=== PATIENT | female | born 1975 | race Caucasian/White ===

== ENCOUNTER 2018-11-04 21:22 | Emergency (ER) | payer SELFPAY ==
--- NOTE | 2018-11-04 23:25 | RADIOLOGY REPORT (SQ) ---
EXAM DESCRIPTION: XR CHEST 1 VIEW COMPLETED DATE/TME: 11/04/2018 22:53 CLINICAL HISTORY: 43 years Female, cp COMPARISON: None. NUMBER OF VIEWS/TECHNIQUE: 1/AP FINDINGS: Adequate lung volume, clear parenchyma, normal cardiac silhouette, and intact bony thorax. IMPRESSION: No acute cardiopulmonary findings.
[2018-11-04] MEDS ORDERED: ASPIRIN 81 MG TABLET, CHEWABLE PO ONE (23:33)
[2018-11-04 23:49] LABS: HEMATOCRIT 37.4 % (36.0-47.0); MEAN CORPUSCULAR HEMOGLOBIN 23.6 pg (27.0-33.4); MEAN CORPUSCULAR HGB CONC 32.2 g/dL (32.0-36.0); MEAN CORPUSCULAR VOLUME 74 fl (80-97); PLATELET COUNT 397 10^3/uL (150-450); RED BLOOD COUNT 5.09 10^6/uL (3.72-5.28); RED CELL DISTRIBUTION WIDTH 17.4 % (11.5-14.0); WHITE BLOOD COUNT 8.8 10^3/uL (4.0-10.5)
[2018-11-05 00:11] LABS: ANION GAP 10 (5-19); BLOOD UREA NITROGEN 7 mg/dL (7-20); CALCIUM 9.8 mg/dL (8.4-10.2); CARBON DIOXIDE 26 mmol/L (22-30); CHLORIDE 106 mmol/L (98-107); GLUCOSE 102 mg/dL (75-110); POTASSIUM 4.1 mmol/L (3.6-5.0); SODIUM 141.6 mmol/L (137-145)
[2018-11-05] MEDS ORDERED: MAG HYDROX/AL HYDROX/SIMETH SUSP 30 ML UDCUP PO ONE (01:08)
[2018-11-05] MEDS ORDERED: METOCLOPRAMIDE HCL ORAL SOLN 10 MG/10 ML UDCUP PO ONE (01:08)
[2018-11-05] MEDS ORDERED: FAMOTIDINE 20 MG TABLET PO ONE (01:08)
[2018-11-05] MEDS ORDERED: LIDOCAINE 2% VISCOUS SOLN 20 ML UDCUP PO ONE (01:08)
--- NOTE | 2018-11-05 01:12 | ER Document Report ---
ED General - General Chief Complaint: Chest Pain Stated Complaint: CHEST PAIN Time Seen by Provider: 11/05/18 00:09 Primary Care Provider: TRISTIAN NAYLOR [NO LOCAL MD] - Follow up as needed Notes: Patient is a 43-year-old female without chronic medical problems who presents with an episode of chest pain that started approximately 5 hours prior to arrival and has since resolved. States that the pain came on abruptly, as a pressure-like sensation in her central chest. No radiation of the pain. Notes some mild associated shortness of breath but no diaphoresis, nausea or vomiting. States that nothing seemed to improve or worsen the discomfort when present although notes that it has effectively completely resolved at the time of presentation. No history of similar symptoms in the past. Has not contacted her primary care doctor regarding today's concerns. Denies any family history of early coronary artery disease. No history of connective tissue disorders. No history of DVT or pulmonary embolus. Does not use any form of supplemental estrogen. TRAVEL OUTSIDE OF THE [place] IN LAST 30 DAYS: No Past Medical History - General Information source: Patient - Social History Smoking Status: Never Smoker Chew tobacco use (# tins/day): No Frequency of alcohol use: None Drug Abuse: None Lives with: Spouse/Significant other Family History: Reviewed & Not Pertinent Patient has suicidal ideation: No Patient has homicidal ideation: No Renal/ Medical History: Denies: Hx Peritoneal Dialysis Review of Systems - Review of Systems Notes: Constitutional: Negative for fever. HENT: Negative for sore throat. Eyes: Negative for visual changes. Cardiovascular: Positive for chest pain. Respiratory: Positive for shortness of breath. Gastrointestinal: Negative for abdominal pain, vomiting or diarrhea. Genitourinary: Negative for dysuria. Musculoskeletal: Negative for back pain. Skin: Negative for rash. Neurological: Negative for headaches, weakness or numbness. 10 point ROS negative except as marked above and in HPI. Physical Exam - Vital signs Vitals: Temp Pulse Resp BP Pulse Ox 98.4 F 92 18 149/109 H 100 11/04/18 21:40 11/04/18 21:40 11/04/18 21:40 11/04/18 21:40 11/04/18 21:40 Interpretation: Hypertensive Notes: PHYSICAL EXAMINATION: GENERAL: Well-appearing, well-nourished and in no acute distress. HEAD: Atraumatic, normocephalic. EYES: Pupils equal round and reactive to light, extraocular movements intact, sclera anicteric, conjunctiva are normal. ENT: nares patent, oropharynx clear without exudates. Moist mucous membranes. NECK: Normal range of motion, supple without lymphadenopathy LUNGS: Breath sounds clear to auscultation bilaterally and equal. No wheezes rales or rhonchi. HEART: Regular rate and rhythm without murmurs ABDOMEN: Soft, nontender, normoactive bowel sounds. No guarding, no rebound. No masses appreciated. EXTREMITIES: Normal range of motion, no pitting or edema. No cyanosis. NEUROLOGICAL: No focal neurological deficits. Moves all extremities spontaneously and on command. PSYCH: Normal mood, normal affect. SKIN: Warm, Dry, normal turgor, no rashes or lesions noted. Course - Re-evaluation Re-evalutation: 11/05/18 01:11 Presentation of chest pain in an otherwise well appearing patient. Low clinical suspicion for ACS given clinical history, exam, EKG without ST elevations or depressions, and negative initial troponin. HEART score less than or equal to 3. PE also seems unlikely given clinical history, absence of tachycardia or dyspnea. Patient is PERC criteria negative. CXR without evidence of pneumothorax or pneumonia. No widened mediastinum. Aortic dissection also seems unlikely given history, symmetric pulses, CXR, and vitals. Will obtain delta troponin and if this remains normal plan for probable discharge home. 11/05/18 03:18 Delta troponin remains normal. Patient remains chest pain-free. Overall assessment: Chest pain in a patient without evidence of cardiac or other serious etiology on workup today. I discussed with patient that, based on their age, risk factors and emergency department testing today, the likelihood that their symptoms are related to a heart attack is very low (estimated risk of heart attack or over the next 30 days of less than 1%). The patient demonstrates decision making capacity and has verbalized an understanding of these risks to me. Based on this, the patient has chosen to follow-up as an outpatient. Usual chest pain return precautions reviewed. The patient states understanding and agreement with this plan. - Vital Signs Vital signs: Temp Pulse Resp BP Pulse Ox 98.4 F 92 12 129/90 H 99 11/04/18 21:40 11/04/18 21:40 11/05/18 02:01 11/05/18 02:01 11/05/18 02:01 - Laboratory Result Diagrams: 11/04/18 23:42 11/04/18 23:42 Laboratory results interpreted by me: 11/04/18 23:42 MCV 74 L MCH 23.6 L RDW 17.4 H - Diagnostic Test Radiology reviewed: Image reviewed, Reports reviewed Radiology results interpreted by me: 11/05/18 01:11 Chest x-ray: No acute infiltrate or pneumothorax - EKG Interpretation by Me Additional EKG results interpreted by me: 11/05/18 01:12 Sinus rhythm, rate 86. No ST elevations or depressions. QTC 436. Discharge - Discharge Clinical Impression: Chest pain Qualifiers: Chest pain type: unspecified Qualified Code(s): R07.9 - Chest pain, unspecified Condition: Good Disposition: HOME, SELF-CARE Additional Instructions: You were seen today for chest pain. The exact cause of your pain is unclear. However, based on your cardiac enzyme testing, chest x-ray, and EKG it does not appear that it is from an immediately life-threatening cause at this time. Although your testing here is normal is critical that you follow-up with your primary care physician for continued evaluation of this chest pain and possible stress testing. I recommended you see your physician within the next 24-48 hours to be evaluated for consideration of a stress test. Please return to emergency department immediately if you have worsening of your chest pain, shortness of breath, vomiting, become unable to exert yourself due to pain or difficulty breathing, you pass out, or have any pain that radiates into your arms, jaw, or back. Please also return if you have any additional symptoms that are concerning to you. Forms: Elevated Blood Pressure Referrals: LOCAL,NO [NO LOCAL MD] - Follow up as needed PATRICA SHANNON MD [ACTIVE STAFF] - Follow up in 3-5 days
[2018-11-05 04:18] VITALS: BP 142/94
--- NOTE | 2018-11-05 08:37 | EKG REPORT ---
SEVERITY:- NORMAL ECG - SINUS RHYTHM : Confirmed by: Ashlee Szymanski MD 05-Nov-2018 08:37:02
== END 2018-11-05 04:18 | disposition home or self-care (01) ==
LOC: ER 21:22
DX: R07.89 Other chest pain (principal); R06.02 Shortness of breath
CPT/HCPCS: 93005; 99284; 36415; 84703; 85027; 80048; 84484; 71045; 93010; J3490